=== PATIENT | female | born 1975 | race African-American/Black ===

== ENCOUNTER 2016-10-02 13:41 | Emergency (ER) | payer OTHER ==
[2016-10-02 13:49] VITALS: BP 137/90
--- NOTE | 2016-10-02 14:03 | ER Document Report ---
ED Medical Screen (RME) - General Stated Complaint: SORE THROAT, EAR PAIN Notes: onset: 2 weeks sore throat, b/l ear pain, body aches, nausea denies fever, chills, vomiting did not receive a flu vaccine this year I have greeted and performed a rapid initial assessment of this patient. A comprehensive ED assessment and evaluation of the patient, analysis of test results and completion of the medical decision making process will be conducted by additional ED providers. TRAVEL OUTSIDE OF THE [place] IN LAST 30 DAYS: No - Related Data Allergies/Adverse Reactions: No Known Allergies Allergy (Verified 10/02/16 13:49) Past Medical History - Past Medical History Cardiac Medical History: Reports: Hx Hypertension Past Surgical History: Reports: Hx Tubal Ligation - Immunizations Hx Diphtheria, Pertussis, Tetanus Vaccination: No Physical Exam - Vital signs Vitals: Temp Pulse Resp BP Pulse Ox 98.4 F 80 16 137/90 H 100 10/02/16 13:48 10/02/16 13:48 10/02/16 13:48 10/02/16 13:48 10/02/16 13:48 Course - Vital Signs Vital signs: Temp Pulse Resp BP Pulse Ox 98.4 F 80 16 137/90 H 100 10/02/16 13:48 10/02/16 13:48 10/02/16 13:48 10/02/16 13:48 10/02/16 13:48
--- NOTE | 2016-10-02 15:05 | ER Document Report ---
ED ENT - General Chief Complaint: Sore Throat Stated Complaint: SORE THROAT, EAR PAIN Time seen by provider: 15:02 Mode of Arrival: Ambulatory TRAVEL OUTSIDE OF THE [place] IN LAST 30 DAYS: No - HPI Patient complains to provider of: Ear problem, Throat problem - pt with c/o sore throat and L earache for the past 2-3 days. Denies fever - Related Data Allergies/Adverse Reactions: No Known Allergies Allergy (Verified 10/02/16 13:49) Past Medical History - General Information source: Patient - Social History Smoking Status: Never Smoker Cigarette use (# per day): No Chew tobacco use (# tins/day): No Smoking Education Provided: No Family History: Reviewed & Not Pertinent Patient has suicidal ideation: No Patient has homicidal ideation: No - Past Medical History Cardiac Medical History: Reports: Hx Hypertension Renal/ Medical History: Denies: Hx Peritoneal Dialysis Past Surgical History: Reports: Hx Tubal Ligation - Immunizations Hx Diphtheria, Pertussis, Tetanus Vaccination: No Review of Systems - Review of Systems Constitutional: No symptoms reported EENT: See HPI, Ear pain, Throat pain Cardiovascular: No symptoms reported Respiratory: No symptoms reported Gastrointestinal: No symptoms reported Musculoskeletal: No symptoms reported -: Yes All other systems reviewed and negative Physical Exam - Vital signs Vitals: Temp Pulse Resp BP Pulse Ox 98.4 F 80 16 137/90 H 100 10/02/16 13:48 10/02/16 13:48 10/02/16 13:48 10/02/16 13:48 10/02/16 13:48 - General General appearance: Appears well In distress: None - HEENT Head: Normocephalic Tympanic membrane: Normal - Nl on R. L Tm is red, dull, with loss of landmarks Mouth/Lips: Normal Mucous membranes: Normal Pharynx: Erythema Neck: Normal - Respiratory Respiratory status: No respiratory distress Breath sounds: Normal - Cardiovascular Rhythm: Regular Heart sounds: Normal auscultation Course - Vital Signs Vital signs: Temp Pulse Resp BP Pulse Ox 98.4 F 80 16 137/90 H 100 10/02/16 13:48 10/02/16 13:48 10/02/16 13:48 10/02/16 13:48 10/02/16 13:48 Discharge - Discharge Clinical Impression: Pharyngitis Qualifiers: Pharyngitis/tonsillitis etiology: unspecified etiology Qualified Code(s): J02.9 - Acute pharyngitis, unspecified Otitis media Qualifiers: Otitis media type: unspecified Laterality: left Chronicity: acute Disposition: HOME, SELF-CARE Instructions: Penicillin V K ([facility]), Sore Throat ([facility]) Additional Instructions: rest, take meds as prescribed, salt water gargle 4x/day, return if worse Prescriptions: Amoxicillin Trihydrate [Amoxil 500 mg Capsule] 500 mg PO TID #30 capsule Referrals: EDIE HUNG MD [ACTIVE STAFF] - Follow up as needed
== END 2016-10-02 15:19 | disposition home or self-care (01) ==
LOC: ER 13:41
DX: J02.9 Acute pharyngitis, unspecified (principal); H66.92 Otitis media, unspecified, left ear; H92.02 Otalgia, left ear; I10 Essential (primary) hypertension
CPT/HCPCS: 87070; 87804; 87880; 99283

== ENCOUNTER 2016-11-12 10:26 | Emergency (ER) | payer SELFPAY ==
--- NOTE | 2016-11-12 11:07 | ER Document Report ---
ED Medical Screen (RME) - General Stated Complaint: COUGH,CHEST TIGHTNESS Mode of Arrival: Ambulatory Information source: Patient Notes: Patient complains of cough for the past 3 days. Patient reports chest pain with coughing only. Patient does complain of sore throat, and ear pain. 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 hx: None I have greeted and performed a rapid initial assessment of this patient. A comprehensive ED assessment and evaluation of the patient, analysis of test results and completion of the medical decision making process will be conducted by additional ED providers. TRAVEL OUTSIDE OF THE [place] IN LAST 30 DAYS: No - Related Data Allergies/Adverse Reactions: No Known Allergies Allergy (Verified 11/12/16 11:03) Past Medical History - Past Medical History Cardiac Medical History: Reports: Hx Hypertension Renal/ Medical History: Denies: Hx Peritoneal Dialysis Past Surgical History: Reports: Hx Tubal Ligation - Immunizations Hx Diphtheria, Pertussis, Tetanus Vaccination: No Physical Exam - Vital signs Vitals: Temp Pulse Resp BP Pulse Ox 99.0 F 75 16 127/73 H 99 11/12/16 10:35 11/12/16 10:35 11/12/16 10:35 11/12/16 10:35 11/12/16 10:35 - Respiratory Respiratory status: No respiratory distress Breath sounds: Nonproductive cough Course - Vital Signs Vital signs: Temp Pulse Resp BP Pulse Ox 99.0 F 75 16 127/73 H 99 11/12/16 10:35 11/12/16 10:35 11/12/16 10:35 11/12/16 10:35 11/12/16 10:35
--- NOTE | 2016-11-12 14:40 | ER Document Report ---
ED General <JOHN WOODALL - Last Filed: 11/12/16 15:04> - General Time seen by provider: 14:35 Mode of Arrival: Ambulatory Information source: Patient TRAVEL OUTSIDE OF THE [place] IN LAST 30 DAYS: No - HPI Onset: Other - see HPI note Associated symptoms: Chest pain - w/ cough, Earache, Fever, Sore throat <VALERIE SEGURA - Last Filed: 11/12/16 16:03> - General Chief Complaint: Cough Stated Complaint: COUGH,CHEST TIGHTNESS Notes: Patient is a 40 year old female presenting to the emergency department for cough , sore throat, and bilateral ear pain for the past 3 days. Patient also complains of some chest pain when coughing as well as some thick yellow-green sputum. Patient states her chest pain goes through into her back. Patient also complains of a fever and has been taking medications to keep her fever down. Patient did not receive a flu vaccination this season. Patient has no known allergies. (VALERIE SEGURA) - Related Data Allergies/Adverse Reactions: No Known Allergies Allergy (Verified 11/12/16 11:03) Past Medical History - General Information source: Patient - Social History Smoking Status: Never Smoker Cigarette use (# per day): No Chew tobacco use (# tins/day): No Frequency of alcohol use: None Drug Abuse: None Family History: None Patient has suicidal ideation: No Patient has homicidal ideation: No - Past Medical History Cardiac Medical History: Reports: Hx Hypertension Past Surgical History: Reports: Hx Tubal Ligation - Immunizations Hx Diphtheria, Pertussis, Tetanus Vaccination: No <VALERIE SEGURA - Last Filed: 11/12/16 16:03> Review of Systems - Review of Systems Constitutional: See HPI, Fever EENT: See HPI, Ear pain, Throat pain Cardiovascular: No symptoms reported Respiratory: See HPI, Cough, Sputum Gastrointestinal: No symptoms reported Genitourinary: No symptoms reported Female Genitourinary: No symptoms reported Musculoskeletal: No symptoms reported Skin: No symptoms reported Hematologic/Lymphatic: No symptoms reported Neurological/Psychological: No symptoms reported -: Yes All other systems reviewed and negative <VALERIE SEGURA - Last Filed: 11/12/16 16:03> Physical Exam <JOHN WOODALL - Last Filed: 11/12/16 15:04> - Vital signs Interpretation: Normal <VALERIE SEGURA - Last Filed: 11/12/16 16:03> - Vital signs Vitals: Temp Pulse Resp BP Pulse Ox 99.0 F 75 16 127/73 H 99 11/12/16 10:35 11/12/16 10:35 11/12/16 10:35 11/12/16 10:35 11/12/16 10:35 - Notes Notes: GENERAL: Well-appearing, well-nourished and in no acute distress HEAD: Atraumatic, normocephalic EYES: Pupils equal round and reactive to light, extraocular movements intact, sclera anicteric, no conjunctival injection or discharge ENT: Nares patent, oropharynx clear without exudates, moist mucous membranes, normal TMs NECK: Normal range of motion, supple without lymphadenopathy LUNGS: Breath sounds clear to auscultation bilaterally and equal. No wheezes rales or rhonchi. Parasternal has exquisite tenderness with palpation. HEART: Regular rate and rhythm without murmurs ABDOMEN: Soft, non-tender, normoactive bowel sounds. No guarding, no rebound. No masses appreciated. No Pellston sign BACK: No CVA tenderness. EXTREMITIES: Normal range of motion, no calf tenderness, no edema NEUROLOGICAL: Cranial nerves grossly intact. Normal speech, Normal sensory and motor exams. No gross cerebellar abnormalities PSYCH: Normal mood, normal affect SKIN: Warm, Dry, normal turgor, no lesions noted (VALERIE SEGURA) Course - Diagnostic Test Radiology reviewed: Image reviewed, Reports reviewed - NAD <JOHN WOODALL - Last Filed: 11/12/16 15:04> <VALERIE SEGURA - Last Filed: 11/12/16 16:03> - Re-evaluation Re-evalutation: 11/12/16 15:05 Patient coming in today with purulent cough with fever symptoms. Patient has no signs of sepsis or serious etiologies. Patient was encouraged to continue drinking fluids and stay hydrated. Patient was treated with appropriate medications. Patient was happy with plan to discharge. Patient was discharged home and instructed to follow-up with her primary care physician. Antibiotics were prescribed with what seems to be consistent with a bacterial source ( JOHN WOODALL) - Vital Signs Vital signs: Temp Pulse Resp BP Pulse Ox 98.0 F 77 16 121/87 H 100 11/12/16 15:20 11/12/16 15:20 11/12/16 15:20 11/12/16 15:20 11/12/16 15:20 Discharge <JOHN WOODALL - Last Filed: 11/12/16 15:04> <VALERIE SEGURA - Last Filed: 11/12/16 16:03> - Discharge Clinical Impression: Acute bronchitis, Chest wall pain Disposition: HOME, SELF-CARE Instructions: Anti-Inflammatory Medication ([facility]), Chest Wall Pain ([facility]), Oral Narcotic Medication ([facility]) Additional Instructions: An elevated blood pressure reading was slightly high here so should be reevaluated after you have improved. Return if worsening or for other concern. Prescriptions: Acetaminophen with Codeine [Tylenol #3 Tablet] 1 each PO Q4HP PRN #10 tablet PRN Reason: For Pain Amox Tr/Potassium Clavulanate [Augmentin 875-125 Tablet] 1 tab PO BID 10 Days Forms: Elevated Blood Pressure, Return to Work Scribe Attestation: 11/12/16 15:04 I personally performed the services described in the documentation, reviewed and edited the documentation which was dictated to the scribe in my presence, and it accurately records my words and actions. (JOHN WOODALL) Scribe Documentation - Scribe Written by Scrneena:: Valerie Segura 11/12/16 16:00 acting as scribe for :: Magalis <VALERIE SEGURA - Last Filed: 11/12/16 16:03>
[2016-11-12 15:22] VITALS: BP 121/87
== END 2016-11-12 15:20 | disposition home or self-care (01) ==
LOC: ER 10:26
DX: J20.9 Acute bronchitis, unspecified (principal); R07.89 Other chest pain; R05 Cough; R50.9 Fever, unspecified; J02.9 Acute pharyngitis, unspecified; H92.03 Otalgia, bilateral; I10 Essential (primary) hypertension
CPT/HCPCS: 71020; 87070; 87077; 87880; 99283

== ENCOUNTER → 2017-02-12 | Outpatient (CLI) | payer MEDICAID ==
[2017-02-12 15:35] LABS: HEMATOCRIT 37.4 % (36.0-47.0); HEMOGLOBIN 12.3 g/dL (12.0-15.5); HGB HCT DIFFERENCE -0.5; MEAN CORPUSCULAR HEMOGLOBIN 23.1 pg (27.0-33.4); MEAN CORPUSCULAR HGB CONC 32.9 g/dL (32.0-36.0); MEAN CORPUSCULAR VOLUME 70 fl (80-97); RED BLOOD COUNT 5.33 10^6/uL (3.72-5.28); RED CELL DISTRIBUTION WIDTH 32.5 % (11.5-14.0); WHITE BLOOD COUNT 6.8 10^3/uL (4.0-10.5)
== END ==
LOC: OD 14:32
PROVIDERS: ATTEND Internal Medicine Hematology & Oncology
DX: D50.0 Iron deficiency anemia secondary to blood loss (chronic) (principal)
CPT/HCPCS: 36415; 82728; 85027

== ENCOUNTER → 2017-04-05 | Outpatient (CLI) | payer MEDICAID ==
--- NOTE | 2017-04-05 16:22 | WOMENS IMAGING REPORT ---
EXAM DESCRIPTION: BILAT SCREENING MAMMO W/CAD COMPLETED DATE/TIME: 04/05/2017 4:11 pm REASON FOR STUDY: ROUTINE SCREENING Z12.31 Z12.39 ENCOUNTER FOR [facility] SCREENING FOR MALIGNANT NEOPLAS M OF COMPARISON: October 2015 TECHNIQUE: Standard craniocaudal and mediolateral oblique views of each breast recorded using digita l acquisition. LIMITATIONS: None. FINDINGS: No masses, calcifications or architectural distortion. No areas of suspicion. Read with the assistance of CAD. .[facility] - R2 Cenova Version 1.3 .[facility] - R2 Cenova Version 1.3 .[facility] - R2 Cenova Version 2.4 .[facility] [place] R2 Cenova Version 2.4 .[facility] - R2 Cardiac/Vascular Sonographer Version 9.2 IMPRESSION: NORMAL MAMMOGRAM. BIRADS 1. BREAST DENSITY: b. There are scattered areas of fibroglandular density. BIRAD: 1 NEGATIVE RECOMMENDATION: ROUTINE SCREENING COMMENT: The patient has been notified of the results by letter per SA requirements. Additional no tification policies are in place for contacting patient with suspicious or incomplete findings. Quality ID #225: The [employer] recommends an annual screening mammogram for women aged 40 years or over. This facility utilizes a reminder system to ensure that all patients receive reminder letters, and/or direct phone calls for appointments. This includes reminders for routine scr eening mammograms, diagnostic mammograms, or other Breast Imaging Interventions when appropriate. Th is patient will be placed in the appropriate reminder system. The [employer] (ACR) has developed recommendations for screening MRI of the breast s in certain patient populations, to be used in conjunction with mammography. Breast MRI surveillanc e may be appropriate for women with more than 20% lifetime risk of developing breast cancer as deter mined by genetic testing, significant family history of the disease, or history of mantle radiation f or Hodgkins Disease. ACR Practice Guidelines 2008. TECHNICAL DOCUMENTATION: FINDING NUMBER: (1) ASSESSMENT: (1) JOB ID: [id number] [employer]- All Rights Reserved
== END ==
LOC: WI 15:46
PROVIDERS: ATTEND Physician Assistant
DX: Z12.31 Encounter for screening mammogram for malignant neoplasm of breast (principal)
CPT/HCPCS: 77067; G0202

== ENCOUNTER → 2018-08-17 | Outpatient (CLI) | payer MEDICAID ==
--- NOTE | 2018-08-17 15:51 | WOMENS IMAGING REPORT ---
EXAM DESCRIPTION: 3D SCREENING MAMMO BILAT COMPLETED DATE/TIME: 08/17/2018 3:29 pm REASON FOR STUDY: SCREENING MAMMO Z12.31 ENCNTR SCREEN MAMMOGRAM FOR MALIGNANT NEOPLASM OF CLAUDINE COMPARISON: 2015, 2016 TECHNIQUE: Standard craniocaudal and mediolateral oblique views of each breast recorded using digita l acquisition and breast tomosynthesis. LIMITATIONS: None. FINDINGS: No masses, calcifications or architectural distortion. No areas of suspicion. Read with the assistance of CAD. .[facility] - R2 Cenova Version 1.3 .[facility] Imaging - R2 Cenova Version 1.3 .[facility] Imaging - R2 Cenova Version 2.4 .[facility] - R2 Cenova Version 2.4 .[facility] - R2 Smoking Pipe Liner Version 9.2 IMPRESSION: NORMAL MAMMOGRAM. BIRADS 1. BREAST DENSITY: b. There are scattered areas of fibroglandular density. BIRAD: 1 NEGATIVE RECOMMENDATION: ROUTINE SCREENING Please continue yearly bilateral screening mammography/tomosynthesis in July 2019 COMMENT: The patient has been notified of the results by letter per SA requirements. Additional no tification policies are in place for contacting patient with suspicious or incomplete findings. Quality ID #225: The [employer] recommends an annual screening mammogram for women aged 40 years or over. This facility utilizes a reminder system to ensure that all patients receive reminder letters, and/or direct phone calls for appointments. This includes reminders for routine scr eening mammograms, diagnostic mammograms, or other Breast Imaging Interventions when appropriate. Th is patient will be placed in the appropriate reminder system. The [employer] (ACR) has developed recommendations for screening MRI of the breast s in certain patient populations, to be used in conjunction with mammography. Breast MRI surveillanc e may be appropriate for women with more than 20% lifetime risk of developing breast cancer as deter mined by genetic testing, significant family history of the disease, or history of mantle radiation f or Hodgkins Disease. ACR Practice Guidelines 2008. DBT Technology DBT is a type of tomographic mammography. With conventional mammography, overlapping breast tissue ma y make lesions difficult to detect, even with good compression. DBT uses an x-ray tube that rotates a round the breast, taking images at different angles. These images are then combined to create thin sl ices of the breast that the radiologist can view as a 3D reconstruction. The [employer] unit can perform full-field digital mammograms (2D imaging); or DBT (3D imaging); or both, in a combination mode that quickly performs both the mammogram and the tomosynthesis scan while the breast is still compressed. PQRS 6045F: Fluoroscopic imaging is not utilized for breast tomosynthesis. TECHNICAL DOCUMENTATION: FINDING NUMBER: (1) ASSESSMENT: (1) JOB ID: [id number] [employer]- All Rights Reserved Reading location - IP/workstation name: [facility]-[email or web address]
== END ==
LOC: WI 15:08
PROVIDERS: ATTEND Physician Assistant
DX: Z12.31 Encounter for screening mammogram for malignant neoplasm of breast (principal)
CPT/HCPCS: 77063; 77067

== ENCOUNTER 2018-09-18 14:57 | Emergency (ER) | payer MEDICAID ==
[2018-09-18] MEDS ORDERED: ACETAMINOPHEN 325 MG TABLET PO ONE (15:33)
[2018-09-18] MEDS ORDERED: OXYCODONE HCL IR 5 MG TABLET PO ONE (15:35)
[2018-09-18] MEDS ORDERED: LIDOCAINE 2% VISCOUS SOLN 20 ML UDCUP PO ONE (15:36)
[2018-09-18] MEDS ORDERED: ONDANSETRON 4 MG TAB.RAPDIS PO ONE (16:06)
--- NOTE | 2018-09-18 16:13 | ER Document Report ---
ED General - General Chief Complaint: Jaw Pain Stated Complaint: MOUTH PAIN Time Seen by Provider: 09/18/18 15:32 Primary Care Provider: JAMEE LEON PA-C [Primary Care Provider] - Follow up as needed Mode of Arrival: Ambulatory Information source: Patient TRAVEL OUTSIDE OF THE [place] IN LAST 30 DAYS: No - HPI Patient complains to provider of: sore jaw Onset: Other - 42-year-old female who presents for evaluation for evaluation of pain in the left and right jaw that is a result of having had her wisdom teeth removed by Dr. Ellis. She denies any shortness of breath, abdominal pain, lightheadedness, bowel pain diarrhea constipation or dysuria. She complains of pain in the jaw and the left side in the right side. Is making her not want to eat quite as much. She is been using oxycodone to try and help with the pain with only modest improvement in her symptoms. - Related Data Allergies/Adverse Reactions: No Known Allergies Allergy (Verified 11/12/16 11:03) Past Medical History - General Information source: Patient - Social History Smoking Status: Former Smoker Family History: None - Past Medical History Cardiac Medical History: Reports: Hx Hypertension Renal/ Medical History: Denies: Hx Peritoneal Dialysis Past Surgical History: Reports: Hx Tubal Ligation - Immunizations Hx Diphtheria, Pertussis, Tetanus Vaccination: No Review of Systems - Review of Systems -: Yes All other systems reviewed and negative Physical Exam - Vital signs Vitals: Temp Pulse Resp BP Pulse Ox 98.7 F 68 16 155/95 H 99 09/18/18 15:12 09/18/18 15:12 09/18/18 15:12 09/18/18 15:12 09/18/18 15:12 - General General appearance: Appears well, Alert - HEENT Head: Normocephalic Eyes: Normal Conjunctiva: Normal Sinus: Normal Nasal: Normal Mouth/Lips: Other - There is modest swelling of the left angle of the mandible with tenderness to palpation from the angle of the mandible up to the TMJ. - Respiratory Respiratory status: No respiratory distress Chest status: Nontender Breath sounds: Normal Chest palpation: Normal - Cardiovascular Rhythm: Regular Heart sounds: Normal auscultation Murmur: No - Abdominal Inspection: Normal Distension: No distension Bowel sounds: Normal Tenderness: Nontender Organomegaly: No organomegaly - Back Back: Normal, Nontender - Extremities General upper extremity: Normal inspection, Nontender, Normal color, Normal ROM, Normal temperature General lower extremity: Normal inspection, Nontender, Normal color, Normal ROM, Normal temperature, Normal weight bearing. No: Christelle's sign - Neurological Neuro grossly intact: Yes Cognition: Normal Orientation: AAOx4 Mcgrew Coma Scale Eye Opening: Spontaneous Mcgrew Coma Scale Verbal: Oriented Fe Coma Scale Motor: Obeys Commands Fe Coma Scale Total: 15 Speech: Normal Motor strength normal: LUE, RUE, LLE, RLE Sensory: Normal - Psychological Associated symptoms: Normal affect, Normal mood Course - Re-evaluation Re-evalutation: 09/18/18 20:36 Is a 42-year-old female presents with jaw pain status post a wisdom tooth resection. She is using oxycodone with minimal relief of her symptoms at home. Does not demonstrate any signs to suggest more serious underlying condition such as Rajendra's angina. She does not demonstrate trismus or inability to open her mouth. I believe that she is likely safe for symptom control and discharge. Current plan is for this patient undergo discharge with return precautions and brief prescription of viscous lidocaine as well as oxycodone and Zofran for nausea. - Vital Signs Vital signs: Temp Pulse Resp BP Pulse Ox 98.7 F 68 16 155/95 H 99 09/18/18 15:12 09/18/18 15:12 09/18/18 15:12 09/18/18 15:12 09/18/18 15:12 Discharge - Discharge Clinical Impression: Jaw pain, Jaw swelling, Nausea Medication adverse effect Qualifiers: Encounter type: initial encounter Qualified Code(s): T50.905A - Adverse effect of unspecified drugs, medicaments and biological substances, initial encounter Condition: Good Disposition: HOME, SELF-CARE Additional Instructions: Your seen today in the emergency department for the pain and swelling in your jaw after your dental surgery. He had evaluation including a physical exam. You been given a change in your antibiotic. You have been given nausea medication. Follow-up with your doctor tomorrow for follow-up of your dental care. Prescriptions: Amox Tr/Potassium Clavulanate [Augmentin 875-125 Tablet] 1 tab PO BID 10 Days tablet Lidocaine HCl [Xylocaine Viscous] 5 ml PO Q6H PRN #100 ml PRN Reason: Ondansetron [Zofran Odt 4 mg Tablet] 1 - 2 tab PO Q4H PRN #15 tab.rapdis PRN Reason: For Nausea/Vomiting Oxycodone HCl 5 mg PO Q12 #4 capsule Forms: Elevated Blood Pressure Referrals: CAITY LENTZ MD [ACTIVE STAFF] - 09/18/18
[2018-09-18 17:39] VITALS: BP 146/87
== END 2018-09-18 17:40 | disposition home or self-care (01) ==
LOC: ER 14:57
DX: K13.79 Other lesions of oral mucosa (principal); R11.0 Nausea; R68.84 Jaw pain; T50.905A Adverse effect of unspecified drugs, medicaments and biological substances, initial encounter; X58.XXXA Exposure to other specified factors, initial encounter
CPT/HCPCS: 99283; J3490 ×3; S0119

== ENCOUNTER → 2019-12-28 | Outpatient (CLI) | payer BC ==
--- NOTE | 2019-12-28 17:25 | RADIOLOGY REPORT (SQ) ---
EXAM DESCRIPTION: HIP RIGHT AP/LATERAL IMAGES COMPLETED DATE/TIME: 12/28/2019 5:09 pm REASON FOR STUDY: RT HIP PAIN M25.551 PAIN IN RIGHT HIP COMPARISON: 02/11/2016 NUMBER OF VIEWS: Two views. TECHNIQUE: AP pelvis and additional frog-leg view of the right hip. LIMITATIONS: None. FINDINGS: MINERALIZATION: Normal. RIGHT HIP: No fracture or dislocation. No worrisome bone lesions. LEFT HIP: No fracture or dislocation. No worrisome bone lesions. PUBIS AND ISCHIUM: No fracture. PELVIS: No fracture. SACRUM: No fracture or dislocation. No worrisome bone lesions. LOWER LUMBAR SPINE: No fracture or dislocation. No worrisome bone lesions. No significant disc disea se. SOFT TISSUES: No findings. OTHER: Interval removal of bilateral tubal ligation clips since the prior study. IMPRESSION: 1. No significant interval changes since the prior study dated 02/11/2016. No acute oss eous findings. TECHNICAL DOCUMENTATION: JOB ID: [id number] [employer]- All Rights Reserved Reading location - IP/workstation name: [email or web address]
== END ==
LOC: RAD 16:58
PROVIDERS: ATTEND Physician Assistant
DX: M25.551 Pain in right hip (principal)